=== PATIENT | male | born 1965 | race Caucasian/White ===

== ENCOUNTER 2022-05-14 17:11 | Inpatient (IN) | payer OTHER ==
[2022-05-14 17:26] VITALS: BMI 41.9
[2022-05-14] MEDS ORDERED: SODIUM CHLORIDE 1,000 ML IV STA ×2 (18:12→22:15)
[2022-05-14 18:55] LABS: BASO % 0.9 % (0-2.0); EOS % 0.3 % (0-4.5); HEMATOCRIT 35.9 % (35.4-49); HEMOGLOBIN 11.8 GM/dL (11.7-16.9); LYMPH % 10.9 % (8-40); MCH 23.8 pg (25.7-33.7); MCHC 32.8 g/dl (32.0-35.9); MEAN CELL VOLUME 72.4 fl (80-96); MEAN PLT VOLUME 9.8 fl (7.5-11.1); MONO % 22.7 % (3.8-10.2); NEUT % 65.2 % (42.8-82.8); RBC 4.95 M/mm3 (4.00-5.60); RDW 18.5 % (11.9-15.9); WHITE BLOOD COUNT 4.5 K/mm3 (4.0-10.0)
[2022-05-14 19:00] LABS: EPI CELLS 7 /uL (0-25.1); HYALINE CASTS 0 /uL (0-3.1); PH,URINE 6.5 (5.0-8.0); URINE APPEARANCE CLEAR; URINE BACTERIA 13 /uL (0-1359); URINE BILIRUBIN NEGATIVE (NEGATIVE); URINE COLOR DK YELLOW; URINE GLUCOSE (UA) NEGATIVE (NEGATIVE); URINE KETONE NEGATIVE (NEGATIVE); URINE LEUK ESTERASE TRACE (NEGATIVE); URINE NITRITE NEGATIVE (NEGATIVE); URINE PROTEIN TRACE (NEGATIVE); URINE RBC 55 /uL (0-23.9); URINE UROBILINOGEN 4.0 E.U/dl mg/dL (0.2-1.0); URINE WBC 10 /uL (0-25.8)
[2022-05-14 19:02] LABS: INR 1.17 (0.83-1.09); PROTHROMBIN TIME (PATIENT) 13.5 SEC (9.7-13.0)
[2022-05-14 19:05] LABS: ACTIVATED PTT 31.3 SECONDS (25.2-36.5)
[2022-05-14 19:19] LABS: ALBUMIN 2.4 g/dl (3.4-5.0); CALCIUM 8.5 mg/dL (8.5-10.1); MAGNESIUM 2.5 mg/dL (1.8-2.4)
[2022-05-14 19:20] LABS: BLOOD UREA NITROGEN 19.8 mg/dL (7-18)
[2022-05-14 19:22] LABS: CREATININE 0.9 mg/dL (0.55-1.3)
[2022-05-14 19:24] LABS: BILIRUBIN,TOTAL 0.8 mg/dL (0.2-1); PLATELET COUNT 100 10^3/uL (134-434); TOT PROT 6.9 g/dl (6.4-8.2)
[2022-05-14 19:29] LABS: N-TERMINAL BNP 346.3 pg/ml (5-125)
[2022-05-14 20:33] LABS: ANISOCYTOSIS 3+; MACROCYTOSIS 2+; OVALOCYTE 1+
[2022-05-14 21:29] LABS: SYPHILIS W/ RPR CONF NON-REACTIVE (NONREACTIVE)
[2022-05-14 21:58] LABS: HIV INTERPRETATION NEGATIVE (NEGATIVE)
[2022-05-14] MEDS ORDERED: IBUPROFEN 800 MG/8 ML IJ IVPB ONE ×2 (22:15→22:54)
[2022-05-15] MEDS ORDERED: THIAMINE HCL 200 MG/2 ML VIAL IVPB ONE (04:26)
[2022-05-15] MEDS ORDERED: THIAMINE HCL 100 MG TABLET (FP) PO ONE (04:27)
[2022-05-15] MEDS ORDERED: THIAMINE HCL 100 MG TABLET (FP) ONE (05:37)
[2022-05-15] MEDS: INSULIN SLIDING SCALE (NOVOLOG) 1 VIAL SQ SCH ×2 (06:45→11:34)
[2022-05-15 06:57] LABS: HEMATOCRIT 31.4 % (35.4-49); HEMOGLOBIN 10.1 GM/dL (11.7-16.9); MCH 23.7 pg (25.7-33.7); MCHC 32.1 g/dl (32.0-35.9); MEAN CELL VOLUME 73.8 fl (80-96); MEAN PLT VOLUME 11.3 fl (7.5-11.1); PLATELET COUNT 107 10^3/uL (134-434); RBC 4.25 M/mm3 (4.00-5.60); RDW 18.8 % (11.9-15.9); WHITE BLOOD COUNT 4.1 K/mm3 (4.0-10.0)
[2022-05-15 06:58] LABS: INR 1.16 (0.83-1.09); PROTHROMBIN TIME (PATIENT) 13.4 SEC (9.7-13.0)
[2022-05-15 07:01] LABS: ACTIVATED PTT 29.3 SECONDS (25.2-36.5)
[2022-05-15 07:05] LABS: BLOOD UREA NITROGEN 16.6 mg/dL (7-18); MAGNESIUM 2.3 mg/dL (1.8-2.4)
[2022-05-15 07:09] LABS: BILIRUBIN,TOTAL 0.8 mg/dL (0.2-1); CREATININE 0.6 mg/dL (0.55-1.3); PHOSPHOROUS 2.3 mg/dL (2.5-4.9); TOT PROT 5.8 g/dl (6.4-8.2)
[2022-05-15] MEDS ORDERED: POTASSIUM PHOSPHATE 30 MM in SODIUM CHLORIDE 500 ML IVPB ONE (09:00)
[2022-05-15] MEDS ORDERED: FOLIC ACID 1 MG TABLET (FP) ONE (09:10)
[2022-05-15 09:40] LABS: ANISOCYTOSIS 0; HELMET CELLS 0; HOWELL-JOLLY BODIES 0; MACROCYTOSIS 0; OVALOCYTE 0; ROULEAU 0; SICKELED CELLS 0; TARGET CELLS 0; TEAR DROP CELLS 0; TOXIC GRANULATION 0
[2022-05-15] MEDS ORDERED: FOLIC ACID 1 MG TABLET (FP) PO SCH (10:00)
[2022-05-15 11:36] VITALS: RESP 17
[2022-05-15] MEDS ORDERED: ACETAMINOPHEN 325 MG TABLET (FP) PO PRN (11:37)
[2022-05-15 14:43] VITALS: BP 109/69; PULSE 87; TEMP 98.1
[2022-05-15] MEDS ORDERED: THIAMINE HCL 100 MG TABLET (FP) PO SCH (22:00)
== END 2022-05-15 02:45 | disposition home or self-care (01) | DRG 866 ==
LOC: JER 17:11 → JERBED 05-15 00:31 → OBSVTOIN 05-15 01:37
PROVIDERS: ADMIT Internal Medicine; ATTEND Internal Medicine
DX: B27.80 Other infectious mononucleosis without complication (principal); Z68.41 Body mass index [BMI] 40.0-44.9, adult; J98.11 Atelectasis; I10 Essential (primary) hypertension; E78.5 Hyperlipidemia, unspecified; E11.9 Type 2 diabetes mellitus without complications; I25.2 Old myocardial infarction; E66.01 Morbid (severe) obesity due to excess calories; E86.0 Dehydration; D69.6 Thrombocytopenia, unspecified; R16.1 Splenomegaly, not elsewhere classified; R05.9 Cough, unspecified; R00.0 Tachycardia, unspecified; E88.09 Other disorders of plasma-protein metabolism, not elsewhere classified; D64.9 Anemia, unspecified; I25.10 Atherosclerotic heart disease of native coronary artery without angina pectoris; J02.9 Acute pharyngitis, unspecified; K76.0 Fatty (change of) liver, not elsewhere classified; N28.1 Cyst of kidney, acquired; R61 Generalized hyperhidrosis
CPT/HCPCS: 0241U-QW; 36415; 71046-TC-FY; 71275-TC; 76700-TC; 80053; 81003; 82272; 82607; 82728; 82962; 83540; 83550; 83605; 83615; 83690; 83735; 83880; 84100; 84155; 84165; 84484; 85025; 85610; 85730; 86780; 86850; 86900; 86901; 87040; 87389; 93005; 93010; 99285-25; G0378; Q9967